=== PATIENT | male | born 1940 | race Caucasian/White ===

== ENCOUNTER 2021-12-12 13:06 | Emergency (ER) | payer OTHER, MEDICARE ==
[~2021-12-12 13:06] MED LIST: AMLODIPINE BESY10 MG PO; BACTRIM DS TAB1 EACH PO; KEFLEX500 MG PO; LANTUS **100 UNITS/ SC; METFORMIN HCL500 MG PO; PRAVACHOL20 MG PO; PRINIVIL20 MG PO; TAMSULOSIN HCL0.4 MG PO; TRAZODONE 50MG50 MG PO; VITAMIN B-121000 MC1 PO
== END 2021-12-12 15:30 | disposition home or self-care (01) ==
LOC: FER 13:06
DX: S00.01XA Abrasion of scalp, initial encounter (principal); S50.311A Abrasion of right elbow, initial encounter; I10 Essential (primary) hypertension; V84.9XXA Unspecified occupant of special agricultural vehicle injured in nontraffic accident, initial encounter; Y92.828 Other wilderness area as the place of occurrence of the external cause
CPT/HCPCS: 70450; 93005